=== PATIENT | female | born 1980 | race Caucasian/White ===

== ENCOUNTER 2022-11-15 11:16 | Outpatient (CLI) | payer BC, SELFPAY ==
[2022-11-15 19:49] LABS: TSH With Reflex to FT4* 0.071 uIU/mL (0.270-4.200)
[2022-11-15 20:53] LABS: Free T4 Free Thyroxine* 1.44 ng/dL (0.70-1.85)
== END 2022-11-15 11:17 | disposition home or self-care (01) ==
PROVIDERS: PCP Family Medicine; Visit Provider Family Medicine
DX: E03.9 Hypothyroidism, unspecified (principal)
CPT/HCPCS: 84439; 84443

== ENCOUNTER 2023-04-05 15:52 | Outpatient (CLI) | payer BC, SELFPAY | END 2023-04-05 15:53 | disposition home or self-care (01) | LOC: FRMREF 15:52 | PROVIDERS: PCP Family Medicine; Visit Provider Dermatology | DX: L70.9 Acne, unspecified (principal); I10 Essential (primary) hypertension; E03.9 Hypothyroidism, unspecified | CPT/HCPCS: 80076 ==

== ENCOUNTER 2023-07-15 12:01 | Emergency (ER) | payer BC, SELFPAY ==
[2023-07-15] VITALS (10 sets, daily range): BP systolic 145–158; BP diastolic 89–112; PULSE 57–69; RESP 18; TEMP 36.7; O2SAT 96–98; BMI 27.5
--- NOTE | 2023-07-15 12:16 | ED_ITS ---
HPI - General Adult General Chief complaint: Post Op Complication Stated complaint: Blood not clotting post-op Time Seen by Provider: 07/15/23 12:06 History of Present Illness HPI narrative: Pt states she had varicose vein removal surgery yesterday at [facility], where pt said 13 incisions were made in left leg. Pt states she is unable to stop bleeding from upper incisions unless she has a ton of pressure on them. Pt has hernando wrap on leg and states she went through all of the gauze in my house. Bleeding currently controlled. 42-year-old woman presenting to the emergency department with concern of postoperative bleeding. Yesterday did have treatment on the left leg for varicose veins. Some of these incisions, none were apparently sutured, have begun to bleed. Has been applying compression dressings but bleeding through them. Is not feeling lightheaded. No fever. No purulent drainage. Related Data Previous Rx's Medication Instructions Recorded levothyroxine 125 mcg tablet 125 mcg PO QDAY #90 tabs 12/12/22 clindamycin phosphate 1 % lotion 1 applic topical BID #60 mL 01/06/23 citalopram 40 mg tablet 40 mg PO DAILY #90 tabs 01/11/23 bupropion HCl 300 mg 24 hr tablet, 300 mg PO QAM #30 tabs 03/30/23 extended release bicalutamide 50 mg tablet (Casodex) 50 mg PO 2XW #24 tabs 04/05/23 clindamycin phosphate 1 % lotion 1 applic topical QDAY #60 mL 04/05/23 tretinoin 0.025 % topical cream 1 applic topical QHS #45 grams 04/05/23 propranolol 10 mg tablet 10 mg PO BID #180 tabs 04/18/23 Allergies Allergy/AdvReac Type Severity Reaction Status Date / Time bee venom protein (honey bee) Allergy Mild Hives Verified 07/15/23 12:12 Sulfa (Sulfonamide Allergy Unknown Verified 07/15/23 12:12 Antibiotics) Review of Systems Status of ROS: Reports: 6 or more systems reviewed and unremarkable except as noted in History and below [facility] Medical History Hair loss ?L65.9 - Nonscarring hair loss, unspecified (ICD-10) Surgical History Status post gastric bypass for obesity ?Z98.84 - Bariatric surgery status (ICD-10) Status post hysterectomy ?Z90.710 - Acquired absence of both cervix and uterus (ICD-10) Status post ?Z98.891 - History of uterine scar from previous surgery (ICD-10) Social History Smoking Status: Never smoker Do you use any of these nicotine containing products: None Second hand tobacco smoke exposure: No How often do you have a drink containing alcohol: 2-3 times a week AUDIT-C Alcohol total score: 3 Non-prescribed substance use: denies use Exam Narrative: Exam Narrative: Pleasant. NAD. Seems little anxious though. Breathing easily. Easily conversant. Left leg in question has extensive Hernando wrap over gauze wrap from mid thigh to mid calf. Bleeding is evident in 2 locations in the mid posterior lateral thigh and looks like another spot just behind the knee. After removal of dressing I do not see any inflammatory changes. Soaking the dressing with water to facilitate more easy removal in this upper left thigh lesion/incision does begin to ooze blood again. Numerous incisions scattered over leg each just a little bit over an 8th of an inch in length. I discussed treatment options. Ms. Hitchcock would prefer not to have any suturing done with concerns of further scarring from that. I did propose lidocaine with epinephrine. There is some concern expressed about this but discussed mechanism of action. Did inject approximately 1 mL of this and bleeding improved. Still some subtle oozing with manipulation so applied silver nitrate stick. Bleeding controlled. Placed surgery foam small amount of antibiotic ointment and Band- Aid under light pressure. Surgical Gelfoam also placed on this lesion behind the knee with antibiotic ointment and light pressure Band-Aid. All wrapped with gauze, foam tape and Coban. Given bacitracin from some applies. Also remaining Gelfoam. Const: Vital Signs, click to edit/add: Vital Signs - 24 hr 07/15/23 12:05 Temperature 98.1 F Pulse Rate [Pulse Oximeter] 69 Respiratory Rate 18 Blood Pressure [Ri ght Upper Arm] 145/95 H Pulse Oximetry 98 Oxygen Delivery Me thod Room Air Documenting provider has reviewed patient's vital signs: yes Course Vital Signs Vital signs: Initial Vital Signs Temperature 98.1 F 07/15/23 12:05 Temperature Source Temporal Artery Scan 07/15/23 12:05 Pulse Rate 69 07/15/23 12:05 Respiratory Rate 18 07/15/23 12:05 Blood Pressure 145/95 H 07/15/23 12:05 Blood Pressure Mean 111 H 07/15/23 12:05 Blood Pressure Position Sitting 07/15/23 12:05 Pulse Oximetry 98 07/15/23 12:05 Oxygen Delivery Method Room Air 07/15/23 12:05 Vital Signs Temperature 98.1 F 07/15/23 12:05 Pulse Rate 69 07/15/23 12:05 Respiratory Rate 18 07/15/23 12:05 Blood Pressure 145/95 H 07/15/23 12:05 Pulse Oximetry 98 07/15/23 12:05 Oxygen Delivery Method Room Air 07/15/23 12:05 Temperature 98.1 F 07/15/23 12:05 Pulse Rate 57 L 07/15/23 13:32 Respiratory Rate 18 07/15/23 12:05 Blood Pressure 157/112 H 07/15/23 13:32 Pulse Oximetry 97 07/15/23 13:32 Oxygen Delivery Method Room Air 07/15/23 12:26 Medical Decision Making MDM Narrative Medical decision making narrative: See above. Does not have any history of diagnosed coagulopathy. See patient discharge plan Discharge Plan Discharge Clinical Impression: Post-op bleeding Patient Disposition: Home w/ Parent or Adult Condition: Improved Additional Instructions: If tolerable I would just leave this dressing on until tomorrow. Can remove all but Band-Aids if getting uncomfortable. Definitely leave the Band-Aids on maybe even till Tuesday of this coming week. I would avoid getting this area wet as well until that time. Cut out the end of a plastic bag and rubber bands? Yes. Do get your leg up at rest and mostly try to rest the remainder of the day. If you go to the soccer game, hopefully can still get your leg up. If bleeding through current dressing. Reapply the surgical foam and Band-Aid and gauze and wrap with compression. Prescriptions: No Action clindamycin phosphate 1 % lotion 1 applic topical BID Qty: 60 1RF bicalutamide [Casodex] 50 mg tablet 50 mg PO 2XW Qty: 24 2RF Rx Instructions: Take 1 tablet two days every week tretinoin 0.025 % cream 1 applic topical QHS Qty: 45 1RF clindamycin phosphate 1 % lotion 1 applic topical QDAY Qty: 60 1RF Rx Instructions: Apply every morning. levothyroxine 125 mcg tablet 125 mcg PO QDAY Qty: 90 3RF citalopram 40 mg tablet 40 mg PO DAILY Qty: 90 3RF bupropion HCl 300 mg tablet extended release 24 hr 300 mg PO QAM Qty: 30 5RF propranolol 10 mg tablet 10 mg PO BID Qty: 180 3RF Follow Up/Referrals: Alden Rabago MD [Primary Care Provider] - Stand Alone Forms: [place] Info Instructions
== END 2023-07-15 14:10 | disposition home or self-care (01) ==
PROVIDERS: Emergency Provider Family Medicine; PCP Family Medicine
DX: L76.22 Postprocedural hemorrhage of skin and subcutaneous tissue following other procedure (principal)
CPT/HCPCS: 17250; 99283; 99284

== ENCOUNTER 2023-08-08 13:01 | Outpatient (CLI) | payer BC, SELFPAY | END 2023-08-08 13:02 | disposition home or self-care (01) | PROVIDERS: PCP Family Medicine; Visit Provider Family Medicine | DX: I10 Essential (primary) hypertension (principal); E03.9 Hypothyroidism, unspecified; R53.83 Other fatigue; Z13.21 Encounter for screening for nutritional disorder | CPT/HCPCS: 80053; 82306; 82607; 84439; 84443 ==

== ENCOUNTER 2023-12-09 10:47 | Outpatient (CLI) | payer BC, SELFPAY | END 2023-12-09 10:48 | disposition home or self-care (01) | PROVIDERS: PCP Family Medicine; Visit Provider Family Medicine | DX: E03.9 Hypothyroidism, unspecified (principal); I10 Essential (primary) hypertension; Z13.220 Encounter for screening for lipoid disorders | CPT/HCPCS: 80053; 80061; 84439; 84443; 87086 ==

== ENCOUNTER 2024-03-22 15:22 | Outpatient (CLI) | payer BC, SELFPAY ==
--- NOTE | 2024-03-22 15:40 | CRLHL7_ITS ---
For Patients: As a result of the Century Cures Act, medical imaging exams and procedure reports are released immediately into your electronic medical record. You may view this report before your referring provider. If you have questions, please contact your health care provider. BILATERAL SCREENING MAMMOGRAM WITH COMPUTER-AIDED DETECTION AND TOMOSYNTHESIS TECHNIQUE: CC and MLO views were obtained. These mammographic images have been obtained using full-field digital technique. These mammographic images were interpreted with the benefit of computer-aided detection. Breast Tomosynthesis was used in this interpretation. COMPARISON FILM: 03/01/23, 12/02/21, 10/17/20. FINDINGS: There are scattered areas of fibroglandular density. IMPRESSION: There is no radiographic evidence for malignancy. ASSESSMENT: BI-RADS Category 1: Negative RECOMMENDATION: Routine screening mammogram in 1 year. A lay language report of this examination will be provided to the patient. Cuco Vicente M.D. Diagnostic Radiologist [email or web address] SP/Dictated by: Cuco Vicente MD @ 03/26/2024 12:26:00 PM (Electronically Signed)
== END 2024-03-22 15:23 | disposition home or self-care (01) ==
LOC: MAMMO 15:22
PROVIDERS: PCP Family Medicine; Visit Provider Family Medicine
DX: Z12.31 Encounter for screening mammogram for malignant neoplasm of breast (principal)
CPT/HCPCS: 77063; 77067

== ENCOUNTER 2024-10-09 11:03 | Outpatient (CLI) | payer BC, SELFPAY | END 2024-10-09 11:04 | disposition home or self-care (01) | PROVIDERS: PCP Family Medicine; Visit Provider Family Medicine | DX: R10.11 Right upper quadrant pain (principal); E03.9 Hypothyroidism, unspecified | CPT/HCPCS: 80076; 84443 ==

== ENCOUNTER 2025-03-29 10:57 | Outpatient (CLI) | payer BC, SELFPAY ==
--- OUTSIDE RECORDS SUMMARY | 2025-01-23 16:30 | XMS_ITS | Encounter Summary ---
Author Organization [employer] Address [address], [place] [address] Care Team Providers Care Salsa Dance Instructor Name Role Phone Jesus Raabgo MD Primary Care Provider [phone] Reason for Referral * Medication Prior Authorization - Authorized Specialty Diagnoses / Procedures Referred By Contac t Referred To Contact Diagnoses Hx of obesity Body mass index (BMI) of 23.0-23.9 in adult Weight loss of more than 10% body weight Anne Kumar MD [address] [place] [id number] Phone: tel: fax: Referral ID Status Reason Start Date Expiration Date V isits Requested Visits Authorized [id number] Authorized 11/19/2024 02/17/2026 1 1 Reason for Visit * Reason Comments Video Visit Bypass Surg Followup Encounter Details Date Type Department Care Team (Late st Contact Info) Description 01/23/2025 4:30 PM CDT Telemedicine [facility] [address], [address] [place] [address] Anne Kumar MD [address] [place], [place] [id number] Recent weight gain after surgical therapy for obesity (Primary Dx); Hx of obesity; Benign essential hypertension, with delivery, with current complication; Body mass index (BMI) of 23.0-23.9 in adult; Intestinal malabsorption following gastrectomy; Hypertriglyceridemia (HRC); Status post bariatric surgery; Weight loss of more than 10% body weight Social History Tobacco Use Types Packs/Day Years Used Date Smoking Tobacco: Never Smokeless Tobacco: Never Alcohol Use Standard Drinks/Week Comments Yes 0 (1 standard drink = 0.6 oz pur e alcohol) very rarely PHQ-2 Answer Date Recorded PHQ-2 Score 2 02/02/2023 Comments Unknown Sex and Gender Information Value Date Recorded Sex Assigned at Female 06/18/2021 9:13 AM CDT Legal Sex Female 5:07 AM CDT Gender Identity Female 06/18/2021 9:13 AM CDT Sexual Orientation Not on file 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 Not on file Not on file Not on file documented as of this encounter Last Filed Vital Signs Vital Sign Reading Time Taken Comments Blood Pressure - - Pulse - - Temperature - - Respiratory Rate - - Oxygen Saturation - - Inhaled Oxygen Concentration - - Weight 63.5 kg (140 lb) 01/23/2025 10:58 AM CDT Height 165.1 cm (5' 5) 01/23/2025 10:58 AM CDT Body Mass Index 23.3 01/23/2025 10:58 AM CDT documented in this encounter Patient Instructions * Patient Instructions* Anne Kumar MD - 01/23/2025 4:30 PM CDT Lab Instructions (to be put in AVS) Please follow the following instructions prior to having your labs drawn: No vitamins or supplements for 24 hours prior to the test No alcohol for 24 hours prior to the test No food or drink (other than water or plain, black coffee) for 12 hours prior to the test. You may call [phone] to schedule a lab appointment at the [facility] nearest you. Scheduled appointments are preferred; however, walk-ins are also accepted. The [place] location isopen Saturdays. Lab Instructions (to be put in AVS) Please follow the following instructions prior to having your labs drawn: No vitamins or supplements for 24 hours prior to the test No alcohol for 24 hours prior to the test No food or drink (other than water or plain, black coffee) for 12 hours prior to the test. You may call [phone] to schedule a lab appointment at the [facility] lab nearest you. Scheduled appointments are preferred; however, walk-ins are also accepted. The [place] location isopen Saturdays. documented in this encounter Progress Notes * Anne Kumar MD - 01/23/2025 4:30 PM CDTAddended by: ANNE VASQUEZ on: 02/14/2025 10:45 PM Modules accepted: Orders * Anne Kumar MD - 01/23/2025 4:30 PM CDT Bariatric Surgery Post-Operative Follow Up HPI This 44 y.o. year-old female with chronic medical problems including HTN Presents for routine postoperative followup status post Laparoscopic Deonna-en-Y. Date of surgery 01/08/2022. Weight viviana: 160 lbs post RNY BOT started 08/2023. Phentermine, Topiramate. Zepbound at 178 lbs Anti Obesity Medication trials Zepbound 02/2024 BMI 29 - current Phentermine 08/2023. Stopped in October 2023 due to increase of BP and no help with weight. control: hysterectomy INTERIM HISTORY Current weight 01/23/2025 63.5 kg (140 lb) 07/18/2024 :137 lb 01/2024: 178 lbs BMI 29 01/2023: 162 lbs Currently on zepbound 5 mg. No side effects. Able to maintain desired weight at this dose. Post Bariatric Surgery Life Style Physical activity: walking.no resistance training. Nutrition: protein 3 times a day. Vitamin and supplements use: yes Alcohol use:rare Smoking: None. Avoiding drinking 30 min before and after eating: yes Mood: denies Symptoms of depression. Dysregulated eating: no Sleep: 7 h Water intake: 64 oz Post Bariatric Surgery Symptoms Heart burn / GERD symptoms: never Dysphagia: Not present. Abdominal pain: Not present. Dumping / Hypoglycemia: no Bariatric Weight History and Calculations Weight History Age at Onset of Obesity: 89 Highest Adult Weight: 245 lb Preferred Weight: 165 lb Lowest Adult Weight: 165 lb At what weight would you not be disappointed?: 199 lb Starting Weight: 238 lb Current Weight: 140 lb Height (in): 66 Weight Calculations Excess Weight: 99 lb Current Weight Loss: 98 lb Goal Weight: 139 lb Starting BMI: 38.49 Percent Exess Weight Loss: 99 Current BMI: 22.64 Percent Totoal Body Weight Loss: 41 MEDICAL HISTORY Phycological history Dysregulated eating : No Substance over use: No Medical history: The patient has a past medical history of S/P gastric bypass (01/08/2022). Surgical history: The patient has a past surgical history that includes Laparoscopic Deonna-en-Y gastric bypass (01/08/2022). Social history: The patient reports that she has never smoked. She has never used smokeless tobacco. She reports current alcohol use. She reports that she does not use drugs. Family history: The patient's family history includes Obesity in her father, mother, maternal grandfather, and maternal grandmother. There is no history of Drug Abuse or Alcohol Abuse. Allergies: Oxycodone and Sulfa antibiotics CURRENT MEDICATIONS The patient has a current medication list which includes the following prescription(s): azelaic acid, bicalutamide, calcium citrate, celecoxib, citalopram, labetalol, levothyroxine, lisinopril, multivitamin with minerals, propranolol, retin-a, and zepbound, and the following Facility-Administered Me dications: sodium chloride 0.9%. OBJECTIVE: Ht 1.651 m (5' 5) Wt 63.5 kg (140 lb) BMI 23.30 kg/m?? (Vitals are reported from patient due to nature of telehealth visit). Gen.: Alert, cooperative in no in acute respiratory or emotional distress. Respiratory: Normal respiratory effort. Psych: No evidence of overt anxiety or depression. Lab Results Component Value Date HGB 13.0 12/15/2022 FERR 76 12/15/2022 FE 120 12/15/2022 ALT 18 06/26/2021 HGBA1C 5.8 (H) 06/26/2021 LDL 126 06/26/2021 TRI 280 (H) 06/26/2021 HDL 49 06/26/2021 CREATININE 0.90 06/26/2021 ASSESSMENT Jaye is a 44 y.o. female is a post Gastric bypass, laparoscopic . Presents for follow up on bariatric surgery 1. Benign essential hypertension, with delivery, with current complication 2. Body mass index (BMI) of 23.0-23.9 in adult 3. Intestinal malabsorption following gastrectomy 4. Hypertriglyceridemia (HRC) 5. Status post bariatric surgery Recurrent weight gain (RWG) PLAN BACK ON TRACK PLAN started 01/2024 BMI 29 BH: No signs of Dysregulated eating. Nutrition: following high protein / low calorie diet. Exercise: Resistance training in place as well as cardion Labs: Reviewed. Other: Anti Obesity Medication(s): Continue with zepbound 5 mg . Prior authorization initiated. - Request sent for Continuation (Start date: 01/2024) of therapy (baseline BMI before any anti obesity medication: 29 kg/m2 p - Patient does not have a contraindication to the medication, including personal or family history of medullary thyroid carcinoma or MEN type 2, and/or co- administration of GLP-1 receptor agonist. - Patient is not pregnan - Patient has a regimen of increased physical activity of at least 150 minutes - Patient has ongoing care of a wafer fabricator hand presser in the last 3 months OR initiation of and ongoing use of a reduced calorie diet. - Patient has a baseline BMI greater than or equal to 30 kg/m2 greater than or equal to 27 kg/m2 with at least one weight-related comorbid condition (type 2 diabetes, established coronary heart disease, other atherosclerotic disease, sleep apnea, hypertension, dyslipidemia) Follow up in 3 months. Schedule Link sent to patient Anne Kumar MD This service was provided via telehealth and conducted using a synchronous audiovideo link. Location of clinician: home Location of patient: home documented in this encounter Nursing Notes * Joseph Russ MA - 01/23/2025 4:30 PM CDT Patient has completed mobile check in process. Last seen on 07/18/24 with recorded weight of 137 lbs. Weight History: Bariatric Weight History and Calculations Weight History Age at Onset of Obesity: 89 Highest Adult Weight: 245 lb Preferred Weight: 165 lb Lowest Adult Weight: 165 lb At what weight would you not be disappointed?: 199 lb Starting Weight: 238 lb Current Weight: 140 lb Height (in): 66 Weight Calculations Excess Weight: 99 lb Current Weight Loss: 98 lb Goal Weight: 139 lb Starting BMI: 38.49 Percent Exess Weight Loss: 99 Current BMI: 22.64 Percent Totoal Body Weight Loss: 41 Measurements Do you have a scale? YES - 140 lb. Do you have a BP cuff? NO Eating patterns Patient is experiencing the following symptoms/problems: None Medications: reviewed by patient. Compliance: Yes Side effects: NO Patient would like to discuss: No concerns Joseph Russ MA 10:59 AM 01/23/2025 documented in this encounter Plan of Treatment Upcoming Encounters Date Type Department Care Team (Late st Contact Info) Description 01/09/2026 3:30 PM CDT Telemedicine [facility] [address] [place] [address], [facility] [address] [place] [id number] Anne Kumar MD [address] [place] [phone] 03/26/2026 4:30 PM CDT Telemedicine [facility] Weight [address] [place] [id number] Anne Kumar MD [address] [place] [id number] Scheduled Orders Name Type Priority Associated Diagnoses Orde r Schedule Lipid Panel & Direct LDL (if Needed) Lab Routine Status post bariatric surgery Expected: 01/23/2025, Expires: 07/25/2025 Hgb A1C Lab Routine Status post bariatric surgery Intestinal malabsorption following gastrectomy Expected: 01/23/2025, Expires: 07/25/2025 Hemoglobin, Blood Lab Routine Status post bariatric surgery Intestinal malabsorption following gastrectomy Expected: 01/23/2025, Expires: 04/23/2025 Iron (no IBC or Sat) Lab Routine Status post bariatric surgery Intestinal malabsorption following gastrectomy Expected: 01/23/2025, Expires: 04/23/2025 Prealbumin Lab Routine Status post bariatric surgery Intestinal malabsorption following gastrectomy Expected: 01/23/2025, Expires: 07/25/2025 Intact PTH Lab Routine Status post bariatric surgery Intestinal malabsorption following gastrectomy Expected: 01/23/2025, Expires: 07/25/2025 Vitamin B12 Only Lab Routine Status post bariatric surgery Intestinal malabsorption following gastrectomy Expected: 01/23/2025, Expires: 07/25/2025 Vitamin D 25-Hydroxy, Total Lab Routine Status post bariatric surgery Intestinal malabsorption following gastrectomy Expected: 01/23/2025, Expires: 07/25/2025 Ferritin Lab Routine Status post bariatric surgery Intestinal malabsorption following gastrectomy Expected: 01/23/2025, Expires: 07/25/2025 Hgb A1C Lab Routine Status post bariatric surgery Expected: 01/23/2025, Expires: 07/25/2025 ALT (SGPT) Lab Routine Status post bariatric surgery Expected: 01/23/2025, Expires: 07/25/2025 documented as of this encounter Visit Diagnoses Diagnosis Recent weight gain after surgical therapy for obesity- Primary Hx of obesity Personal history of other specified diseases Benign essential hypertension, with delivery, with current complication Body mass index (BMI) of 23.0-23.9 in adult Body Mass Index between 19-24, adult Intestinal malabsorption following gastrectomy Hypertriglyceridemia (HRC) Pure hyperglyceridemia Status post bariatric surgery Bariatric surgery status Weight loss of more than 10% body weight documented in this encounter Care Teams Salsa Dance Instructor Relationship Specialty Start Date End Date Jesus Rabago MD [facility] [address] [place] [address] PCP - General Family Practice 01/08/22 documented as of this encounter
--- NOTE | 2025-03-29 11:30 | CRLHL7_ITS ---
For Patients: As a result of the Century Cures Act, medical imaging exams and procedure reports are released immediately into your electronic medical record. You may view this report before your referring provider. If you have questions, please contact your health care provider. INDICATION: BILATERAL SCREENING MAMMOGRAM, ASYMPTOMATIC 44 Y/O FEMALE COMPARISON: 03/22/2024, 03/01/2023, 12/02/2021 TECHNIQUE: Digital mammogram in CC and MLO projections including computer-aided detection (CAD) and tomosynthesis. BREAST COMPOSITION: The breasts are heterogeneously dense, which may obscure small masses. FINDINGS: No suspicious findings. ASSESSMENT: BI-RADS 1 Negative RECOMMENDATION: Annual screening mammogram. A lay language report of this examination will be provided to the patient. Dictated by: Cuco Vicente MD @ 03/29/2025 11:54:43 (Electronically Signed)
--- OUTSIDE RECORDS SUMMARY | 2025-03-30 00:31 | XMS_ITS | Clinical Summary ---
Author Organization [facility] Address [address] [place] [address] Care Team Providers Care Quality Process Engineer Name Role Phone Jesus Rabago MD Primary Care Provider [phone] Source Comments You are receiving this document as you are listed as the primary care provider,follow-up provider, or the patient has been referred to you for consultation.This is in compliance with the Medicare andMedicaid EHR Incentive Program,which states Providers who transition their patient to another setting of careor provider of care or refers their patient to another provider of care shouldprovide summary care record for each transition of care or referral. [facility] Allergies Active Allergy Reactions Criticality Noted Date Comments Oxycodone Headache High 01/15/2022 migraine Sulfa Antibiotics 10/06/2004 PN: LW Reaction: family hx Medications levothyroxine (SYNTHROID) 125 MCG tablet Take 1 Tablet (125 mcg) by mouth daily. 1 Active propranolol (INDERAL) 10 MG tablet Take 1 Tablet (10 mg) by mouth as needed. 1 Active citalopram (CELEXA) 40 MG tablet Take 1 Tablet (40 mg) by mouth daily. Active multivitamin with minerals tablet Take 1 Tablet by mouth daily. Active Calcium Citrate (AKA CALCITRATE) 950 (200 Ca) MG tablet Take 1 Tablet (950 mg) by mouth daily. Active azelaic acid (FINACEA) 15 % gel Apply topically. 4 Active bicalutamide (CASODEX) 50 MG tablet Take by mouth. 4 Active celecoxib (CELEBREX) 200 MG capsule Take 1 Capsule (200 mg) by mouth daily. 4 Active labetalol (TRANDATE) 300 MG tablet Take 1 Tablet (300 mg) by mouth two times a day. 4 Active lisinopril (ZESTRIL) 40 MG tablet Take 1 Tablet (40 mg) by mouth daily. 4 Active RETIN-A 0.025 % cream Apply topically. 4 Active tirzepatide-we ight management (ZEPBOUND) 5 MG/0.5ML pen injectionIndic ations:Hx of obesity,Body mass index (BMI) of 23.0-23.9 in adult,Weight loss of more than 10% body weight Inject 0.5 mL (5 mg) subcutaneously once every week. 2 mL 11 5 Active Active Problems Problem Noted Date Diagnosed Date S/P gastric bypass 01/08/2022 Overview (01/08/2022): Laparoscopic Deonna-en-Y gastric bypass No elective surgery for 30 days starting 01/08/22 Class 2 obesity with body ma ss index (BMI) of 39.0 to 39.9 in adult 11/17/2021 Overview (11/17/2021): Added automatically from request for surgery [id number] Essential (primary) hypertension 06/18/2021 Current mild episode of major depressive disorde r 06/18/2021 Depressive disorder 12/19/2007 Overview (06/01/2017): Depression NOS Benign essential hypertensio n, with delivery, with current complication 08/22/2007 Overview (06/01/2017): Hypertension Benign Essent Deliv Pp Comp Encounters Date Type Department Care Team Description 02/14/2025 Telephone [facility] [address] [place], [place] [phone] Renate Chang php mysql developer For Medication (Zepbound approved); Insurance Concerns (No insurance benefits found per PA response) 01/23/2025 4:30 PM CDT Telemedicine [facility] [address] [facility], [address] [place] [address] Aishwarya Kumar MD Recent weight gain after surgical therapy for obesity (Primary Dx); Hx of obesity; Benign essential hypertension, with delivery, with current complication; Body mass index (BMI) of 23.0-23.9 in adult; Intestinal malabsorption following gastrectomy; Hypertriglyceridemia (HRC); Status post bariatric surgery; Weight loss of more than 10% body weight from Last 3 Months Immunizations Immunization Administration Dates Next Due Flu Vac Preserv Free (3+yrs) 07/10/2009 H1n1 Miv Sanofi 3+ Yr (Injected) 08/11/2009 TDAP (ADACEL) 12/19/2007 Family History Medical History Relation Name Comments Obesity Father Obesity Mother Obesity Maternal Grandfather Obesity Maternal Grandmother Alcohol Abuse Negative Family History Drug Abuse Negative Family History Relation Name Status Comments Father Mother Maternal Grandfather Maternal Grandmother Social History Tobacco Use Types Packs/Day Years [...] file Not on file Not on file Last Filed Vital Signs Vital Sign Reading Time Taken Comments Blood Pressure 146/83 01/11/2024 8:15 AM CDT fatuma f-reported Pulse 66 07/14/2023 3:21 PM CDT Temperature 36.7 C (98 F) 01/09/2022 10:12 AM CDT Respiratory Rate 18 01/09/2022 10:12 AM CDT Oxygen Saturation 96% 01/09/2022 10:12 AM CDT Inhaled Oxygen Concentration - - Weight 63.5 kg (140 lb) 01/23/2025 10:58 AM CDT Height 165.1 cm (5' 5) 01/23/2025 10:58 AM CDT Body Mass Index 23.3 01/23/2025 10:58 AM CDT Plan of Treatment Upcoming Encounters Date Type Department Care Team (Late st Contact Info) Description 01/09/2026 3:30 PM CDT Telemedicine [facility] [address] [place] [id number] Aishwarya Kumar MD [address] [place] [address] [phone] 03/26/2026 4:30 PM CDT Telemedicine [facility] [address], [address] [id number] Aishwarya Kumar MD [address] [place] [address] [phone] Health Maintenance Due Date Last Done Comments Colon Cancer Screening Plan Due 1979 Hep C Screening (Preventive Services) 1979 Mammogram 1979 Adult Preventive Visit 1997 HepB Vaccine (1) 1998 Cervical Cancer Screening Due 12/24/2008 12/23/2008, 12/19/2007 COVID-19 Vaccine ( season) 2024 09/22/2021, 12/18/2020, 11/20/2020 DTaP/Tdap/Td Vaccine (3 - Tdap) 07/16/2025 07/16/2015, 12/19/2007 Cholesterol 06/26/2026 06/26/2021 Zoster/Shingles Vaccine (1 of 2) 2029 HIV Screening (Preventive Services) Completed 09/10/2009 Influenza Vaccine Completed 10/09/2024, , 08/24/2021, Additional history exists HPV Vaccine Aged Out No longer eligi ble based on patient's age to complete this topic HepA Vaccine Aged Out No longer eligi ble based on patient's age to complete this topic Hib Vaccine Aged Out No longer eligi ble based on patient's age to complete this topic IPV (Polio) Vaccine Aged Out No longe r eligible based on patient's age to complete this topic MCV4 Vaccine Aged Out No longer eligi ble based on patient's age to complete this topic Meningococcal B Vaccine Aged Out No l onger eligible based on patient's age to complete this topic Pneumococcal Vaccine Aged Out No long er eligible based on patient's age to complete this topic Procedures Procedure Name Priority Date/Time Associated Diagnosis Comments LIPID PANEL & DIRECT LDL (IF NEEDED) Routine 06/26/2021 8:40 AM CDT Screening for lipoid disorders HIV ANTIBODY Routine 09/10/2009 11:40 AM [employer] ANATOMICAL PATH LIQUID BASED Routine 12/23/2008 7:49 AM CDT from Last 3 Months or Most Recently Relevant to Health Maintenance Results * (ABNORMAL) Lipid Panel and Direct LDL(If Needed) (06/26/2021 8:40 AM CDT) [facility] Cholesterol 231(H) 0 - 199 mg/dL 06/26/2021 12:33 PM T [facility] Triglyceride 280(H) <=149 mg/dL 06/26/2021 12:33 PM T [facility] HDL Cholesterol 49 >=40 mg/dL 12:33 PM [facility] LDL, Calculated 126 <130 mg/dL 12:33 PM T [facility] Non HDL Chol, Calculated 182(H) <=159 mg/dL 06/26/2021 12:33 PM T [facility] Cholesterol/HDL Ratio 4.7 06/26/2021 12:33 PM T [facility] Hours Fasting 14 06/26/2021 12:33 PM CDT [facility] Blood Venipuncture / Unknown 06/26/2021 8:40 AM CDT 06/26/2021 8:40 AM CDT us Aishwarya Kumar MD LAB_1 Elen lopez Result [facility] [address] [place] [address], [facility] [phone] [facility] [address] [place] [address], [facility] [phone] * HIV ANTIBODY (09/10/2009 11:40 AM [employer]) HIV 1/HIV 2 Non Reac Non Reac HP CONVERSION 09/10/2009 11:4 0 AM [employer] us Cuco Ortega MD LAB_1 Final Result Performing Organization Address [facility] Co de Phone Number HP CONVERSION * Pap Smear (12/23/2008 7:49 AM CDT) PAP Smear Liquid Based SEE TEXT No normal range HP CONVERSION Comment: Patient: JAYE ESCOBAR CERVICAL CYTOLOGY REPORT Pathology # [id number] Date Obtained: Date Received: CYTOLOGIC IMPRESSION: Negative for intraepithelial lesion or malignancy. Verified 12/26/08 by: JLL (electronic signature) ADDITIONAL DATA LMP: CLINICAL HIST LIQUID BASED PAP CERVICAL SPECIMEN ADEQUACY: Satisfactory. ENDOCERVICAL CELLS: Present. 12/23/2008 7:49 AM CDT us Sameera Morrison LAB_1 Final Result HP CONVERSION from Last 3 Months or Most Recently Relevant to Health Maintenance Insurance [place] [address] [facility] [place] [id number] [facility] [employer] [place] [id number] Advance Directives * Full Code (Latest Code Status on File) Date Activated Date Inactivated Comments 01/08/2022 5:53 PM 01/09/2022 3:28 PM Care Teams Quality Process Engineer Relationship Specialty Start Date End Date Jesus Rabago MD [facility] [address] [place] [address] PCP - General Family Practice 01/08/22
--- OUTSIDE RECORDS SUMMARY | 2025-03-30 00:31 | XMS_ITS | Encounter Summary ---
Author Organization [facility] Address [address] [address] Care Team Providers Care Waist Presser Name Role Phone Jesus Rabago MD Primary Care Provider [phone] Reason for Visit * Reason Comments Prior Authorization For Medication Zepbo und approved Insurance Concerns No insurance benefit s found per PA response Encounter Details Date Type Department Care Team (Late st Contact Info) Description 02/14/2025 Telephone [facility] [address] [facility] [place], [place] [phone] Renate Chang dockmaster For Medication (Zepbound approved); Insurance Concerns (No insurance benefits found per PA response) Social History Tobacco Use Types Packs/Day Years [...] on file documented as of this encounter Nursing Notes * Renate Chang RN - 02/19/2025 11:24 AM CDT PA has been approved. Pt informed. * Renate Chang RN - 02/18/2025 2:00 PM CDT Contacted insurance to verify PA remains in process or requires to be restarted. Call transferred to speciality department who manages this account. Spoke with [employer] employee relations representative. Calltransferred to clinical review through [employer]. Informed a faxed form to be forwarded for completion and return. * Renate Chang RN - 02/14/2025 3:46 PM CDT PA closed as no pharmacy benefits have been found. Contacted pharmacy and obtained the following: Rx BIN: [id number] Rx PCN: [id number] Rx Group: [id number] Pt ID: [id number] PA re initiated documented in this encounter Plan of Treatment Upcoming Encounters Date Type Department Care Team (Late st Contact Info) Description 01/09/2026 3:30 PM CDT Telemedicine [facility] [address] [place] [phone] Aishwarya Kumar MD [address] [place] [phone] 03/26/2026 4:30 PM CDT Telemedicine [facility] [address], [facility] [address] [place] [phone] Aishwarya Kumar MD [address] [place] [phone] documented as of this encounter Visit Diagnoses Not on filedocumented in this encounter Care Teams Waist Presser Relationship Specialty Start Date End Date Jesus Rabago MD [facility] [address] [place] [address] PCP - General Family Practice 01/08/22 documented as of this encounter
--- OUTSIDE RECORDS SUMMARY | 2025-03-30 00:32 | XMS_ITS | Clinical Summary ---
Author Organization [facility] Address [address] [place] [address] Care Team Providers Care Copywriting Intern Name Role Phone Unavailable Primary Care Provider Unavailabl e Source Comments Patient records contain information from all sites at [facility]. For routine questions regarding patient records, call [phone] during business hours, M-F 8:00 AM - 5:00 PM Central Time. Record requests for emergency care only can be directed to [phone] at any time.[facility] Active Problems Problem Noted Date Diagnosed Date Loss Hearing Sensorineural Bilateral 06/23/2023 Social History Tobacco Use Types Packs/Day Years Used Date Smoking Tobacco: Never Assessed Humiliation, Afraid, Rape, and Kick questionnair e Answer Date Recorded Within the last year, have y ou been afraid of your partner or ex-partner? No 05/13/2023 Within the last year, have y ou been humiliated or emotionally abused in other ways by your partner or ex-partner? No Within the last year, have y ou been kicked, hit, slapped, or otherwise physically hurt by your partner or ex-partner? No 05/13/2023 Within the last year, have y ou been raped or forced to have any kind of sexual activity by your partner or ex-partner? No 05/13/2023 Hunger Vital Sign Answer Date Recorded Within the past 12 months, y ou worried that your food would run out before you got the money to buy more. Sometimes true Within the past 12 months, t he food you bought just didn't last and you didn't have money to get more. Never true 01/2023 PRAPARE - Transportation Answer Date Re corded In the past 12 months, has l ack of transportation kept you from medical appointments or from getting medications? No 01/2023 In the past 12 months, has l ack of transportation kept you from meetings, work, or from getting things needed for daily living? No 05/13/2023 Housing Stability Answer Date Recorded What is your living situation today? [facility] 05/13/2023 Comments Unknown Sex and Gender Information Value Date Recorded Sex Assigned at Female 05/13/2023 7:44 PM CDT Legal Sex Female 12:45 PM CDT Gender Identity Female 05/13/2023 7:44 PM CDT Sexual Orientation Straight 05/13/2023 7: 44 PM CDT Plan of Treatment Health Maintenance Due Date Last Done Comments CT Colonography 1979 Cervical/Vaginal Cancer Screening 1979 Cologuard 1979 Colonoscopy 1979 Colorectal Cancer Screening 1979 FIT 1979 Fasting Glucose for Diabetes Screening 1979 HIV Screening 1979 Hepatitis C Screening 1979 Lipid (Cholesterol) Screening 1979 Mammogram 1979 Hepatitis B Vaccines (1 of 3 - 19+ 3-dose series) 1998 COVID-19 Vaccine ( season) 2024 09/22/2021, 12/18/2020, 11/20/2020 Influenza Vaccine (#1) 2024 3, 08/24/2021, 08/07/2020, Additional history exists Depression Screening (Annual PHQ-2) 10/10/2024 DTaP,Tdap,and Td Vaccines (3 - Td or Tdap) 07/16/2025 07/16/2015, 12/19/2007 HPV Vaccines Aged Out No longer eligi ble based on patient's age to complete this topic IPV Vaccines Aged Out No longer eligi ble based on patient's age to complete this topic Pneumococcal vaccine (0-49 years) Aged Out No longer eligible based on patient's age to complete this topic Insurance [facility]
== END 2025-03-29 10:58 | disposition home or self-care (01) ==
LOC: MAMMO 10:57
PROVIDERS: PCP Family Medicine; Visit Provider Family Medicine
DX: Z12.31 Encounter for screening mammogram for malignant neoplasm of breast (principal); R92.333 Mammographic heterogeneous density, bilateral breasts
CPT/HCPCS: 77063; 77067

== ENCOUNTER 2025-05-10 14:24 | Outpatient (CLI) | payer BC, SELFPAY | END 2025-05-10 14:25 | disposition home or self-care (01) | LOC: LKVREF 14:26 | PROVIDERS: PCP Family Medicine; Visit Provider Family Medicine | DX: E03.9 Hypothyroidism, unspecified (principal) | CPT/HCPCS: 84439; 84443 ==

== ENCOUNTER 2025-07-17 10:14 | Outpatient (CLI) | payer BC, SELFPAY | END 2025-07-17 10:15 | disposition home or self-care (01) | LOC: NFLDREF 07-20 17:47 | PROVIDERS: PCP Family Medicine; Referring Provider Family Medicine; Visit Provider Physician Assistant Surgical | DX: N30.01 Acute cystitis with hematuria (principal) | CPT/HCPCS: 87086 ==

== ENCOUNTER 2025-10-03 14:39 | Emergency (ER) | payer BC, SELFPAY ==
--- OUTSIDE RECORDS SUMMARY | 2025-10-03 14:41 | XMS_ITS | Clinical Summary ---
Author Organization Formerly [facility] Address [address] [place] [address] Care Team Providers Care Bryologist Name Role Phone Jesus Rabago MD Primary Care Provider [phone] Source Comments You are receiving this document [...] for each transition of care or referral. [facility]ly [facility] Allergies Active AllergyReactionsCriticalityNoted DateCommentsOxycodoneHeadacheHigh 01/15/2022 migraine Sulfa Rkrwzkpggej06/28/2004 PN: LW Reaction: family hx Medications MedicationSigDispense QuantityRefillsLast FilledStart DateEnd DateStatus levothyroxine (SYNTHROID) 125 MCG tablet Take 1 Tablet (125 mcg) by mouth daily.03/13/2021ctive propranolol (INDERAL) 10 MG tablet Take 1 Tablet (10 mg) by mouth as needed.03/17/2021ctive citalopram (CELEXA) 40 MG tablet Take 1 Tablet (40 mg) by mouth daily.Active multivitamin with minerals tablet Take 1 Tablet by mouth daily.Active Calcium Citrate (AKA CALCITRATE) 950 (200 Ca) MG tablet Take 1 Tablet (950 mg) by mouth daily.Active azelaic acid (FINACEA) 15 % gel Apply topically.05/25/2024ctive bicalutamide (CASODEX) 50 MG tablet Take by mouth.05/25/2024ctive celecoxib (CELEBREX) 200 MG capsule Take 1 Capsule (200 mg) by mouth daily.4Active labetalol (TRANDATE) 300 MG tablet Take 1 Tablet (300 mg) by mouth two times a day.06/08/2024ctive lisinopril (ZESTRIL) 40 MG tablet Take 1 Tablet (40 mg) by mouth daily.06/08/2024ctive RETIN-A 0.025 % cream Apply topically.05/25/2024ctive tirzepatide-weight management (ZEPBOUND) 5 MG/0.5ML pen injection Indications:Hx of obesity,Body mass index (BMI) of 23.0-23.9 in adult,Weight loss of more than 10% body weightInject 0.5 mL (5 mg) subcutaneously once every week. 2 mL 1105Active Active Problems ProblemNoted DateDiagnosed DateS/P gastric zmdzbx9001/08/2022 Overview (01/08/2022): Laparoscopic Deonna-en-Y gastric bypass No elective surgery for 30 days starting 01/08/22 Class 2 obesity with body mass index (BMI) of 39.0 to 39.9 in adult11/17/2021 Overview (11/17/2021): Added automatically from request for surgery [id number] Essential (primary) rfopjootvgrs42/09/2021Current mild episode of major depressive qgrtbqmi07/09/2021Depressive /11/2008 Overview (06/01/2017): Depression NOS Benign essential hypertension, with delivery, with current vafimgupjazn49/13/2007 Overview (06/01/2017): Hypertension Benign Essent Deliv Pp Comp Immunizations ImmunizationAdministration DatesNext DueFlu Vac Preserv Free (3+yrs)07/10/2009 H1n1 Miv [employer]i 3+ Yr (Injected)08/11/2009TDAP (ADACEL)12/19/2007 Family History Medical HistoryRelationNameCommentsObesityBirth FatherObesityBirth MotherObesity Maternal GrandfatherObesityMaternal GrandmotherAlcohol AbuseNegative Family HistoryDrug AbuseNegative Family HistoryRelationNameStatusCommentsBirth Father MotherMaternal GrandfatherMaternal Grandmother Social History Tobacco UseTypesPacks/DayYears UsedDateSmoking Tobacco: NeverSmokeless Tobacco: NeverAlcohol UseStandard Drinks/WeekCommentsYes0 (1 standard drink = 0.6 oz pure alcohol)very rarelyPHQ-2AnswerDate RecordedPHQ-2 Btvum8633 CommentsUnknownSex and Gender InformationValueDate RecordedSex Assigned at Cjtypq3406/18/2021 9:13 AM CDTLegal XeuSfqetd92/10/2012 5:07 AM CDTGender Identity Aipgxq8606/18/2021 9:13 AM CDTSexual OrientationNot on fileOccupationIndustryJob Start DateJob End Datedirect salesNot on fileNot on fileNot on file Last Filed Vital Signs Vital SignReadingTime TakenCommentsBlood Maiyhhzt173/8304 8:15 AM CDT self-uwdwicttAheju4045/05/2023 3:21 PM KRCRntfqannxuc55.7 ??C (98 ??F)01/09/2022 10:12 AM CDTRespiratory Fieo8891 10:12 AM CDTOxygen Yjgivuekmz68% 01/09/2022 10:12 AM CDTInhaled Oxygen Concentration--Mibuir57.5 kg (140 lb) 01/23/2025 10:58 AM DBUZrylpu978.1 cm (5' 5)01/23/2025 10:58 AM CDTBody Mass Index23.304 10:58 AM CDT Plan of Treatment DateTypeDepartmentCare Team (Latest Contact Info)Ghklwbgbkxj43/02/2026 3:30 PM CDTTelemedicine [facility] [address], [address] [place] [address] Aishwarya Kumar MD [address] [place] [address] 01/23/2026 3:30 PM [facility] [address], [address] [place] [address] Aishwarya Kumar MD [address] [place] [address] 03/26/2026 4:30 PM [facility] [address] [place] [address], [address] [place] [address] Aishwarya Kumar MD [address] [place], [place] [address] Health MaintenanceDue DateLast DoneCommentsColon Cancer Screening Plan Due 1979Hep C Screening (Preventive Services)1980 3353Qyqmwnomv1979 Adult Preventive Visit1997HepB Vaccine (1)1998Cervical Cancer Screening Due, 12/19/2007COVID-19 Vaccine ( season), 12/18/2020, 11/20/2020Influenza Vaccine (#1) /, 08/03/2023, 08/24/2021, Additional history exists DTaP/Tdap/Td Vaccine (3 - Tdap)/04/2015, 12/19/2007Cholesterol /Zoster/Shingles Vaccine (1 of 2)2029HIV Screening (Preventive Services)Tfjngktze05/02/2009HepA VaccineAged OutNo longer eligible based on patient's age to complete this topicHib VaccineAged OutNo longer eligible based on patient's age to complete this topicIPV (Polio) VaccineAged OutNo longer eligible based on patient's age to complete this topicMCV4 Vaccine Aged OutNo longer eligible based on patient's age to complete this topic Meningococcal B VaccineAged OutNo longer eligible based on patient's age to complete this topicPneumococcal VaccineAged OutNo longer eligible based on patient's age to complete this topic Procedures Procedure NamePriorityDate/TimeAssociated DiagnosisCommentsLIPID PANEL & DIRECT LDL (IF NEEDED)Qtxaffj8906/26/2021 8:40 AM CDT Screening for lipoid disorders HIV BPKNSAMKBekecjk99/02/2009 11:40 AM URGENT CARE TECHNICIAN ANATOMICAL PATH LIQUID XBBIKDzagjpq21/16/2009 7:49 AM CDT from Last 3 Months or Most Recently Relevant to Health Maintenance Results * (ABNORMAL) Lipid Panel and Direct LDL(If Needed) (06/26/2021 8:40 AM CDT) ComponentValueRef RangeTest MethodAnalysis TimePerformed AtPathologist UbpsjzdzuLqiqagnuuxo703(H)0 - 199 mg/dL06/26/2021 12:33 PM [facility] ABZJZUHGGKZjzijxtljfac064(H)<=149 mg/dL06/26/2021 12:33 PM [facility] LABORATORYHDL Oajequyiqih79>=40 mg/dL06/26/2021 12:33 PM [facility] LABORATORYLDL, Qxenmknarx332<130 mg/dL06/26/2021 12:33 PM [facility] Chol, Lbocbomdnw480(H)<=159 mg/dL06/26/2021 12:33 PM CDT [facility]ORYCholesterol/HDL Ratio4.709 12:33 PM [facility] LABORATORYHours Vhjzrst2473/17/2021 12:33 PM CDTPSOUTHER[facility] LABORATORYSpecimen (Source)Anatomical Location / LateralityCollection Method / VolumeCollection TimeReceived TimeBloodVenipuncture / Tkiebza6106/26/2021 8:40 AM CDT06/26/2021 8:40 AM CDT Narrative Authorizing ProviderResult TypeResult StatusJesscindy Kumar MDLAB_1 Final ResultPerforming OrganizationAddressCity/State/ZIP CodePhone Number [facility] [address] [place] [address], [facility] [phone] [facility] [address] [place] [address], [facility] [phone] * HIV ANTIBODY (09/10/2009 11:40 AM URGENT CARE TECHNICIAN)ComponentValueRef RangeTest Method Analysis TimePerformed AtPathologist SignatureHIV 1/HIV 2Non ReacNon ReacHP CONVERSIONSpecimen (Source)Anatomical Location / LateralityCollection Method / VolumeCollection TimeReceived Time09/10/2009 11:40 AM URGENT CARE TECHNICIAN Narrative Authorizing ProviderResult TypeResult StatusDavid Marcin Ortega MDLAB_1Final Result Performing OrganizationAddressCity/State/ZIP CodePhone Number [facility] CONVERSION * Pap Smear (12/23/2008 7:49 AM CDT)ComponentValueRef RangeTest MethodAnalysis TimePerformed AtPathologist SignaturePAP Smear Liquid BasedSEE TEXTNo normal rangeHP CONVERSIONComment: Patient: JAYE ESCOBAR ? CERVICAL CYTOLOGY REPORT Pathology # ??[id number] ?Date Obtained: ? Date Received: CYTOLOGIC IMPRESSION: Negative for intraepithelial lesion or malignancy. Verified 12/26/08 by: ??JLL ?(electronic signature) ? ADDITIONAL DATA LMP: CLINICAL HIST LIQUID BASED PAP CERVICAL SPECIMEN ADEQUACY: ?? Satisfactory. ENDOCERVICAL CELLS: ??Present. Specimen (Source)Anatomical Location / LateralityCollection Method / Volume Collection TimeReceived Time12/23/2008 7:49 AM CDT Narrative Authorizing ProviderResult TypeResult StatusJeania MorrisonLAB_1Final Result Performing OrganizationAddressCity/State/ZIP CodePhone Number [facility] CONVERSION from Last 3 Months or Most Recently Relevant to Health Maintenance Insurance * Guarantor: Jaye Escobar TypeRelation to PatientDate of BirthPhone Billing AddressPersonal/LzhsygFpvh1980 [facility] [employer] [place] [address] [place] [address] [place] [address] Advance Directives * Full Code (Latest Code Status on File) Date ActivatedDate InactivatedComments01/08/2022 5:53 PM01/09/2022 3:28 PM Care Teams Team MemberRelationshipSpecialtyStart DateEnd Date Jesus Rabago MD [facility] [address] [place] [address] PCP - GeneralFamily Practice01/08/22
[2025-10-03 14:43] VITALS: BP 129/79; PULSE 67; RESP 18; TEMP 37.2; O2SAT 98
--- NOTE | 2025-10-03 14:57 | CRLHL7_ITS ---
For Patients: As a result of the Cures Act, medical imaging exams and procedure reports are released immediately into your electronic medical record. You may view this report before your referring provider. If you have questions, please contact your health care provider. INDICATION: Low back pain. TECHNIQUE: Three views of the lumbar spine. COMPARISON: None. FINDINGS: Vertebral body heights and alignment are normal. There is moderate loss of disc height at L5-S1 and at T11-12 with small anterior osteophytes. Mild facet joint degenerative changes in the lower lumbar spine. Surgical clips are noted in the anterior abdominal wall and suture material projects over the left mid and upper abdomen. IMPRESSION: Degenerative changes in the lower lumbar spine. No acute fracture. Dictated by Regina Leija MD @ 10/03/2025 3:19:53 PM (Electronically Signed)
--- NOTE | 2025-10-03 14:58 | ED_ITS ---
HPI - Back Pain/Injury General Chief Complaint: Back Injury/Pain Stated Complaint: low back pain Time Seen by Provider: 10/03/25 14:40 History of Present Illness HPI Narrative: Patient is a 45-year-old woman who presents with low back pain. Pain starts in her buttocks and radiates down her left leg. She has now developed inability to dorsiflex her left foot. She has had no other neurologic symptoms. She states the pain is moderate. She has taken Tylenol and Celebrex with limited effect. She has had no recent injuries. She describes no bowel or bladder symptoms no fevers no chills. She has had no similar symptoms previously Related Data Home Medications ?Medication ?Instructions ?Recorded ?Confirmed lisinopril 40 mg tablet 40 mg PO DAILY 05/10/2509/10 tirzepatide (weight loss) 5 mg/0.5 mg subcut .weekly 0 05/10/25 07/17/25 mL subcutaneous pen injector (Zepbound) Previous Rx's ?Medication ?Instructions ?Recorded bupropion HCl 300 mg 24 hr tablet, 300 mg PO QAM #90 t abs 10/09/24 extended release celecoxib 200 mg capsule 200 mg PO QDAY #90 caps 09/11 11/02 citalopram 40 mg tablet 40 mg PO DAILY #90 tabs 09/11 11/02 estradiol 0.5 mg tablet 0.5 mg PO QDAY 90 days #90 t abs 10/09/24 labetalol 300 mg tablet 300 mg PO BID #180 tabs 09/11 11/02 levothyroxine 125 mcg tablet 125 mcg PO QDAY #90 tabs 10/09/24 propranolol 10 mg tablet 10 mg PO BID #180 tabs 10/09 estradiol 1 mg tablet 1 mg PO QDAY #90 tabs bicalutamide 50 mg tablet (Casodex) 50 mg PO 2XW #24 t abs 09/25/25 Allergies Allergy/AdvReac Type Severity Reaction Status Date / Time bee venom protein (honey bee) Allergy Mild Hives Verified 10/03/25 14:49 Sulfa (Sulfonamide Allergy Unknown Verified 10/03/25 14:49 Antibiotics) oxycodone Allergy Verified 10/03/25 14:49 Review of Systems Status of ROS: Reports: 10 or more systems reviewed and unremarkable except as noted in History and below [facility] Medical History Hair loss ?L65.9 - Nonscarring hair loss, unspecified (ICD-10) Obesity ?E66.9 - Obesity, unspecified (ICD-10) Surgical History History of hand surgery ?Z98.890 - Other specified postprocedural states (ICD-10) Status post gastric bypass for obesity ?Z98.84 - Bariatric surgery status (ICD-10) Status post hysterectomy ?Z90.710 - Acquired absence of both cervix and uterus (ICD-10) Status post ?Z98.891 - History of uterine scar from previous surgery (ICD-10) Family History Aunt Heart disease Mother High blood pressure Breast cancer Colon cancer Father High blood pressure Grandfather Thyroid disease Grandmother Breast cancer Social History Narrative: Occupation Administration Education BS Sexually active 3 children Never smoked What is your current living situation?: I presently have a place to live Problems where you live: no known problems In the past 12 months, utilities in danger of being shut off: no In past 12 months, lack of transportation kept you from medical appts, meetings, work, or getting things needed for daily living: no In the past 12 mos, have been you worried that your food would run out before you had money to buy more?: never true In the past 12 mos, the food you bought just didn't last and you didn't have money to buy more?: never true Smoking Status: Never smoker Do you use any of these nicotine containing products: None Second hand tobacco smoke exposure: No How often do you have a drink containing alcohol: 2-3 times a week AUDIT-C Alcohol total score: 3 Non-prescribed substance use: denies use How often does anyone, including family, friends and others, physically hurt you : never How often does anyone, including family, friends and others, insult or talk down to you: never How often does anyone, including family, friends and others, threaten you with harm: never How often does anyone, including family, friends and others, scream or curse at you: never Exam Narrative: Exam Narrative: EXAM GENERAL: Patient appears comfortable and well. EYES: No scleral icterus. LYMPH: No supraclavicular or cervical lymphadenopathy. SKIN: Visible skin seen during exam normal or with benign process only. EXT: No dependent lower extremity pedal edema. HEART: Regular rate and rhythm with no murmurs, rubs, or gallops. LUNGS: Clear to auscultation bilaterally with no crackles or wheezes. ABD: Soft, non tender, non distended. PSYCH: Good eye contact, speech is not pressured. Neurologic cranial nerves 2-12 grossly intact no focal defects. Const: Vital Signs, click to edit/add: Vital Signs - 24 hr 10/03/25 14:43 Temperature 98.9 F Pulse Rate [Right Pulse Oximeter] 67 Respiratory Rate 18 Blood Pressure [Ri ght Upper Arm] 129/79 Pulse Oximetry 98 Oxygen Delivery Me thod Room Air Course Course ED Course: Patient seen and examined. X-ray of her lumbar spine pending. Vital Signs Vital signs: Initial Vital Signs Temperature 98.9 F 10/03/25 14:43 Temperature Source Temporal Artery Scan 10/03/25 14:43 Pulse Rate 67 10/03/25 14:43 Pulse Rhythm Regular 10/03/25 14:43 Pulse Strength 3+ Normal 10/03/25 14:43 Respiratory Rate 18 10/03/25 14:43 Blood Pressure 129/79 10/03/25 14:43 Blood Pressure Mean 95 10/03/25 14:43 Blood Pressure Position Sitting 10/03/25 14:43 Pulse Oximetry 98 10/03/25 14:43 Oxygen Delivery Method Room Air 10/03/25 14:43 Vital Signs Temperature 98.9 F 10/03/25 14:43 Pulse Rate 67 10/03/25 14:43 Respiratory Rate 18 10/03/25 14:43 Blood Pressure 129/79 10/03/25 14:43 Pulse Oximetry 98 10/03/25 14:43 Oxygen Delivery Method Room Air 10/03/25 14:43 Temperature 98.9 F 10/03/25 14:43 Pulse Rate 67 10/03/25 14:43 Respiratory Rate 18 10/03/25 14:43 Blood Pressure 129/79 10/03/25 14:43 Pulse Oximetry 98 10/03/25 14:43 Oxygen Delivery Method Room Air 10/03/25 14:43 MDM - Back Pain/Injury MDM Narrative Medical decision making narrative: Patient presents with sciatica on the left with mild footdrop. She has no other focal neurologic defects other than discomfort. She has a x-ray series shows some mild arthritic changes inferiorly. This time I feel like her most likely diagnosis his sciatica will treated with a Tylenol prednisone rest and follow-up with her primary physician to discuss MRI verses physical therapy the next few days. Discharge Plan Discharge Clinical Impression: Sciatica Patient Disposition: Home, Self-Care Condition: Stable Instructions: Sciatica (ED) Additional Instructions: Prednisone as directed Tylenol 1000 mg 3 times a day as needed Ice Follow-up with your doctor discussed physical therapy versus MRI this coming week. Prescriptions: No Action labetalol 300 mg tablet 300 mg PO BID Qty: 180 3RF levothyroxine 125 mcg tablet 125 mcg PO QDAY Qty: 90 3RF propranolol 10 mg tablet 10 mg PO BID Qty: 180 3RF citalopram 40 mg tablet 40 mg PO DAILY Qty: 90 3RF bupropion HCl 300 mg tablet extended release 24 hr 300 mg PO QAM Qty: 90 3RF celecoxib 200 mg capsule 200 mg PO QDAY Qty: 90 2RF estradiol 0.5 mg tablet 0.5 mg PO QDAY 90 Days Qty: 90 3RF Rx Instructions: off 5 days; repeat cycle lisinopril 40 mg tablet 40 mg PO DAILY Zepbound 5 mg/0.5 mL pen injector subcut .weekly estradiol 1 mg tablet 1 mg PO QDAY Qty: 90 3RF bicalutamide [Casodex] 50 mg tablet 50 mg PO 2XW Qty: 24 3RF Rx Instructions: Take 1 tablet two days every week Follow Up/Referrals: Alden Rabago MD [Primary Care Provider, Family Practice] Stand Alone Forms: [employer] Info Instructions
== END 2025-10-03 15:38 | disposition home or self-care (01) ==
PROVIDERS: Emergency Provider Internal Medicine; PCP Family Medicine
DX: M54.32 Sciatica, left side (principal); M21.372 Foot drop, left foot
CPT/HCPCS: 72100; 72148; 99283; 99284

== ENCOUNTER 2025-10-08 12:59 | Emergency (ER) | payer BC, SELFPAY ==
--- OUTSIDE RECORDS SUMMARY | 2025-10-08 13:04 | XMS_ITS | Clinical Summary ---
Author Organization [facility] Address [address] [place] [address] Care Team Providers Care Hoof And Shoe Inspector Name Role Phone Jesus Rabago MD Primary Care Provider [phone] Source Comments You are receiving this document [...] for each transition of care or referral. [facility] Allergies Active AllergyReactionsCriticalityNoted DateCommentsOxycodoneHeadacheHigh 01/15/2022 migraine Sulfa Ezrroupjuqz63/28/2004 PN: LW Reaction: family hx Medications MedicationSigDispense [...] 1105Active Active Problems ProblemNoted DateDiagnosed DateS/P gastric bfyrej6101/08/2022 Overview (01/08/2022): Laparoscopic Deonna-en-Y gastric bypass No elective surgery for 30 days starting 01/08/22 Class 2 obesity with body mass index (BMI) of 39.0 to 39.9 in adult11/17/2021 Overview (11/17/2021): Added automatically from request for surgery [id number] Essential (primary) etrdvbdkfblj31/09/2021Current mild episode of major depressive nviuylas25/09/2021Depressive hxniwwuq69/11/2008 Overview (06/01/2017): Depression NOS Benign essential hypertension, with delivery, with current niuotmugxqhf52/13/2007 Overview (06/01/2017): Hypertension Benign Essent Deliv Pp Comp Immunizations ImmunizationAdministration DatesNext DueFlu Vac Preserv Free (3+yrs)07/10/2009 H1n1 Miv Sanofi 3+ Yr (Injected)08/11/2009TDAP (ADACEL)12/19/2007 Family History Medical HistoryRelationNameCommentsObesityBirth FatherObesityBirth MotherObesity Maternal GrandfatherObesityMaternal GrandmotherAlcohol AbuseNegative Family HistoryDrug AbuseNegative Family HistoryRelationNameStatusCommentsBirth Father MotherMaternal GrandfatherMaternal Grandmother Social History Tobacco UseTypesPacks/DayYears UsedDateSmoking Tobacco: NeverSmokeless Tobacco: NeverAlcohol UseStandard Drinks/WeekCommentsYes0 (1 standard drink = 0.6 oz pure alcohol)very rarelyPHQ-2AnswerDate RecordedPHQ-2 Atkpy8803 CommentsUnknownSex and Gender InformationValueDate RecordedSex Assigned at Ebbgmz1906/18/2021 9:13 AM CDTLegal XcoUsfqxj41/10/2012 5:07 AM CDTGender Identity Igsnbd2206/18/2021 9:13 AM CDTSexual OrientationNot on fileOccupationIndustryJob Start DateJob End Datedirect salesNot on fileNot on fileNot on file Last Filed Vital Signs Vital SignReadingTime TakenCommentsBlood Wxlcfvtg536/8304 8:15 AM CDT self-ovxajdjrHdani2248/05/2023 3:21 PM LPKDjeycjgyxjf96.7 ??C (98 ??F)01/09/2022 10:12 AM CDTRespiratory Axjz4469 10:12 AM CDTOxygen Dolssjbssr14% 01/09/2022 10:12 AM CDTInhaled Oxygen Concentration--Wbgiwe40.5 kg (140 lb) 01/23/2025 10:58 AM GXTCgxglo553.1 cm (5' 5)01/23/2025 10:58 AM CDTBody Mass Index23.304 10:58 AM CDT Plan of Treatment DateTypeDepartmentCare Team (Latest Contact Info)Ivlxaavrzvr81/02/2026 3:30 PM CDTTelemedicine [facility] [address], [address] [place] [address] Aishwarya Kumar MD [address] [place] [address] 01/23/2026 3:30 PM [facility] [address], [address] [place] [address] Aishwarya Kumar MD [address] [place] [address] 03/26/2026 4:30 PM [facility] [address] [place] [address], [address] [place] [address] Aishwarya Kumar MD [address] [place], [place] [id number] Health MaintenanceDue DateLast DoneCommentsColon Cancer Screening Plan Due 1979Hep C Screening (Preventive Services)1980 4172Uetxhjffe1979 Adult Preventive Visit1997HepB Vaccine (1)1998Cervical Cancer Screening Due, 12/19/2007COVID-19 Vaccine ( season), 12/18/2020, 11/20/2020Influenza Vaccine (#1) /, 08/03/2023, 08/24/2021, Additional history exists DTaP/Tdap/Td Vaccine (3 - Tdap)/04/2015, 12/19/2007Cholesterol /Zoster/Shingles Vaccine (1 of 2)2029HIV Screening (Preventive Services)Hegbkerut08/02/2009HepA VaccineAged OutNo longer eligible based on patient's [...] NamePriorityDate/TimeAssociated DiagnosisCommentsLIPID PANEL & DIRECT LDL (IF NEEDED)Ghhhwgc1806/26/2021 8:40 AM CDT Screening for lipoid disorders HIV JWPVGJCRQbpfoge12/02/2009 11:40 AM COLD TYPE ARTIST ANATOMICAL PATH LIQUID VCHNBIcjnmyz93/16/2009 7:49 AM CDT from Last 3 Months or Most Recently Relevant to Health Maintenance Results * (ABNORMAL) Lipid Panel and Direct LDL(If Needed) (06/26/2021 8:40 AM CDT) ComponentValueRef RangeTest MethodAnalysis TimePerformed AtPathologist QbdvcbjieSlugtypdtih887(H)0 - 199 mg/dL06/26/2021 12:33 PM [facility] QNUTPAURYHOwcovipbtakc120(H)<=149 mg/dL06/26/2021 12:33 PM [facility] LABORATORYHDL Grrgsruhzbu10>=40 mg/dL06/26/2021 12:33 PM [facility] LABORATORYLDL, Xuaffbhwog270<130 mg/dL06/26/2021 12:33 PM [facility] HDL Chol, Vhhmjnfwxx899(H)<=159 mg/dL06/26/2021 12:33 PM CDT [facility]ORATORYCholesterol/HDL Ratio4.709 12:33 PM [facility] LABORATORYHours Beblwlq2643/17/2021 12:33 PM [facility]PP[facility] LABORATORYSpecimen (Source)Anatomical Location / LateralityCollection Method / VolumeCollection TimeReceived TimeBloodVenipuncture / Niocyeq2106/26/2021 8:40 AM CDT06/26/2021 8:40 AM CDT Narrative Authorizing ProviderResult TypeResult StatusJesscindy Kumar MDLAB_1 Final ResultPerforming OrganizationAddressCity/State/ZIP CodePhone Number [facility] [address] [address] [address], [facility] [phone] [facility] [address] [place] [address], [facility] [phone] * HIV ANTIBODY (09/10/2009 11:40 AM COLD TYPE ARTIST)ComponentValueRef RangeTest Method Analysis TimePerformed AtPathologist SignatureHIV 1/HIV 2Non ReacNon ReacHP CONVERSIONSpecimen (Source)Anatomical Location / LateralityCollection Method / VolumeCollection TimeReceived Time09/10/2009 11:40 AM COLD TYPE ARTIST Narrative Authorizing ProviderResult TypeResult StatusDavid Marcin Ortega MDLAB_1Final Result Performing OrganizationAddressCity/State/ZIP CodePhone Number HP CONVERSION * Pap Smear (12/23/2008 7:49 AM CDT)ComponentValueRef RangeTest MethodAnalysis TimePerformed AtPathologist SignaturePAP Smear Liquid BasedSEE TEXTNo normal rangeHP CONVERSIONComment: Patient: JAYE ESCOBAR ? CERVICAL CYTOLOGY REPORT Pathology # ??[id number] ?Date Obtained: ? Date Received: CYTOLOGIC IMPRESSION: [...] Escobar TypeRelation to PatientDate of BirthPhone Billing AddressPersonal/MhceieEfdj1980 [facility] DIN For[employer]™ NetworkNorth [facility] [place] [address] [place] [address] [place] [address] Advance Directives * Full Code (Latest Code Status on File) Date ActivatedDate InactivatedComments01/08/2022 5:53 PM01/09/2022 3:28 PM Care Teams Team MemberRelationshipSpecialtyStart DateEnd Date Jesus Rabago MD [facility] [address] [place] [address] PCP - GeneralFamily Practice01/08/22
[2025-10-08 13:15] VITALS: BP 148/92; PULSE 66; RESP 16; TEMP 36.9; O2SAT 97; BMI 25.4
--- NOTE | 2025-10-08 13:40 | CRLHL7_ITS ---
For Patients: As a result of the Century Cures Act, medical imaging exams and procedure reports are released immediately into your electronic medical record. You may view this report before your referring provider. If you have questions, please contact your health care provider. INDICATION: Left foot drop. Urinary incontinence. COMPARISON: None. TECHNIQUE: Sagittal T1, T2, and STIR sequences. Axial T1 and T2 weighted sequences. FINDINGS: Degenerative retrolisthesis of L4 on L5 measures approximately 3 mm. Otherwise, normal alignment. No fractures. No vertebral body loss of height. No ligamentous injury. No suspicious osseous lesions. Normal conus terminates at L2. T12-L1 L1-2 L2-3: No spinal canal or neural foraminal narrowing. L3-4: Annular bulge. No spinal canal or neural foraminal narrowing. L4-5: Grade 1 retrolisthesis. Disc degeneration and posterior disc bulge. Flattening of ventral thecal sac. Mild narrowing of the spinal canal. No neural foraminal narrowing. There is a superimposed left subarticular disc extrusion measuring 6 mm in diameter with 6 mm of caudal migration. No narrowing of spinal canal. Left subarticular recess narrowing with impingement of the traversing left L5 nerve root. No neural foraminal narrowing. L5-S1: Disc degeneration loss disc height. No narrowing of the spinal canal. No impingement of the traversing S1 nerve roots. No neural foraminal narrowing. Normal visualized SI joints. Normal paraspinal soft tissues. IMPRESSION: 1. Degenerative retrolisthesis of L4 on L5. Otherwise normal alignment. No fractures 2. At L4-5, grade 1 retrolisthesis. Posterior disc bulge. Mild narrowing of the spinal canal. Left subarticular disc extrusion with caudal migration. Impingement of the traversing left L5 nerve root. 3. No spinal canal or neural foraminal narrowing at the remaining levels Dictated by Ike Red MD @ 10/08/2025 2:44:12 PM (Electronically Signed)
--- NOTE | 2025-10-08 13:41 | ED.NEUROSD ---
HPI - Neuro Symptoms/Deficit General Chief Complaint: Neuro Symptoms/Altered Deficit Stated Complaint: bladder leakage Time Seen by Provider: 10/08/25 13:29 History of Present Illness HPI Narrative: This 45-year-old female was seen 5 days ago in the emergency department and started on a steroid because of a left foot drop. She also has had some urine incontinence. She attempted to follow-up with her doctor for MRI and was unable to arrange that so was advised to come here to the emergency department yet an MRI. She is not reporting any pain but states that she cannot dorsiflex her left foot beyond 90?. This of course is in addition to some persistent urinary incontinence. Related Data Home Medications ?Medication ?Instructions ?Recorded ?Confirmed lisinopril 40 mg tablet 40 mg PO DAILY 05/10/25 10/03/25 tirzepatide (weight loss) 5 mg/0.5 mg subcut .weekly 05/10/25 07/17/25 mL subcutaneous pen injector (Zepbound) Previous Rx's ?Medication ?Instructions ?Recorded bupropion HCl 300 mg 24 hr tablet, 300 mg PO QAM #90 tabs 10/09/24 extended release celecoxib 200 mg capsule 200 mg PO QDAY #90 caps 10/09/24 citalopram 40 mg tablet 40 mg PO DAILY #90 tabs 10/09/24 estradiol 0.5 mg tablet 0.5 mg PO QDAY 90 days #90 tabs 10/09/24 labetalol 300 mg tablet 300 mg PO BID #180 tabs 10/09/24 levothyroxine 125 mcg tablet 125 mcg PO QDAY #90 tabs 10/09/24 propranolol 10 mg tablet 10 mg PO BID #180 tabs 10/09/24 estradiol 1 mg tablet 1 mg PO QDAY #90 tabs 05/10/25 bicalutamide 50 mg tablet (Casodex) 50 mg PO 2XW #24 tabs 09/25/25 methylprednisolone 4 mg tablets in See Rx Instructions PO .COMPLEX 10/08/25 a dose pack (Medrol (Bruce)) #21 ea Allergies Allergy/AdvReac Type Severity Reaction Status Date / Time bee venom protein (honey bee) Allergy Mild Hives Verified 10/08/25 13:21 Sulfa (Sulfonamide Allergy Unknown Verified 10/08/25 13:21 Antibiotics) oxycodone Allergy Verified 10/08/25 13:21 Review of Systems Status of ROS: Reports: 10 or more systems reviewed and unremarkable except as noted in History and below Narrative: Constitutional: No fevers, no weight gain or loss. Eyes: No discharge. No vision changes. HENT: No congestion, no sore throat, no ear pain. Cardiovascular: No chest pain, no palpitations. Respiratory: No shortness of breath, no wheezes, no cough. Gastrointestinal: No abdominal pain, no vomiting, no diarrhea. Genitourinary: Nohematuria. Urinary incontinence. Musculoskeletal: Normal range of motion. Skin: No rashes, no pruritis. Neurological: No dizziness, sensory change, speech change. Left footdrop. Endo/Heme/Allergies: No bruising or bleeding. No polydipsia. Pysch: no suicidality, no anxiety, no insomnia. All other systems reviewed and are negative. [facility] Medical History (Updated 10/08/25 @ 15:17 by Alden Albrecht MD) Hair loss ?L65.9 - Nonscarring hair loss, unspecified (ICD-10) Obesity ?E66.9 - Obesity, unspecified (ICD-10) Surgical History History of hand surgery ?Z98.890 - Other specified postprocedural states (ICD-10) Status post gastric bypass for obesity ?Z98.84 - Bariatric surgery status (ICD-10) Status post hysterectomy ?Z90.710 - Acquired absence of both cervix and uterus (ICD-10) Status post ?Z98.891 - History of uterine scar from previous surgery (ICD-10) Family History Aunt Heart disease Mother High blood pressure Breast cancer Colon cancer Father High blood pressure Grandfather Thyroid disease Grandmother Breast cancer Social History Narrative: Occupation Administration Education BS Sexually active 3 children Never smoked What is your current living situation?: I presently have a place to live Problems where you live: no known problems In the past 12 months, utilities in danger of being shut off: no In past 12 months, lack of transportation kept you from medical appts, meetings, work, or getting things needed for daily living: no In the past 12 mos, have been you worried that your food would run out before you had money to buy more?: never true In the past 12 mos, the food you bought just didn't last and you didn't have money to buy more?: never true Smoking Status: Never smoker Do you use any of these nicotine containing products: None Second hand tobacco smoke exposure: No How often do you have a drink containing alcohol: 2-3 times a week How many standard drinks containing alcohol do you have on a typical day: 1 or 2 How often do you have six or more drinks on one occasion: Never AUDIT-C Alcohol total score: 3 Non-prescribed substance use: denies use How often does anyone, including family, friends and others, physically hurt you: never How often does anyone, including family, friends and others, insult or talk down to you: never How often does anyone, including family, friends and others, threaten you with harm: never How often does anyone, including family, friends and others, scream or curse at you: never Exam Narrative: Exam Narrative: Constitutional: Well-developed, well-nourished, no acute distress. HEENT: Normocephalic, atraumatic. Neck: Normal range of motion. Nontender. Supple. Heart: Regular. No murmurs. Normal rate. Intact distal pulses. Lungs: Clear to auscultation. No chest discomfort. No wheezes, rhonchi, or rales. Abdomen: Normal bowel sounds. Nontender. No rebound tenderness. Genitalia: Deferred. Back: No midline tenderness. Normal range of motion. Extremities:No injury. Left foot has weakness with dorsiflexion. Skin: Intact. No rash. Warm. No erythema or pallor. Neurologic: No altered sensation. No weakness. Alert and oriented. Psychiatric: No suicidality. No anxiety or depression. No insomnia. Nursing notes and vitals signs are reviewed. Const: Vital Signs, click to edit/add: Vital Signs - 24 hr 10/08/25 13:15 Temperature 98.4 F Pulse Rate [Pulse Oximeter] 66 Respiratory Rate 16 Blood Pressure [Ri ght Upper Arm] 148/92 H Pulse Oximetry 97 Oxygen Delivery Me thod Room Air Course Vital Signs Vital signs: Initial Vital Signs Temperature 98.4 F 10/08/25 13:15 Temperature Source Temporal Artery Scan 10/08/25 13:15 Pulse Rate 66 10/08/25 13:15 Respiratory Rate 16 10/08/25 13:15 Blood Pressure 148/92 H 10/08/25 13:15 Blood Pressure Mean 110 H 10/08/25 13:15 Pulse Oximetry 97 10/08/25 13:15 Oxygen Delivery Method Room Air 10/08/25 13:15 Vital Signs Temperature 98.4 F 10/08/25 13:15 Pulse Rate 66 10/08/25 13:15 Respiratory Rate 16 10/08/25 13:15 Blood Pressure 148/92 H 10/08/25 13:15 Pulse Oximetry 97 10/08/25 13:15 Oxygen Delivery Method Room Air 10/08/25 13:15 Temperature 98.4 F 10/08/25 13:15 Pulse Rate 66 10/08/25 13:15 Respiratory Rate 16 10/08/25 13:15 Blood Pressure 148/92 H 10/08/25 13:15 Pulse Oximetry 97 10/08/25 13:15 Oxygen Delivery Method Room Air 10/08/25 13:15 MDM - Neuro Symptoms/Deficit MDM Narrative Medical decision making narrative: this patient has had severe pain in her low back radiating down her leg but now the pain is gone but she does have residual weakness with dorsiflexion of her ankle and her great toe. An MRI is obtained which shows disc bulging and nerve impingement did at L4-L5 which would correlate with her current symptoms. She does not have any other findings including no sign of how take wine a syndrome. She states that she just finished a course of prednisone. I did provide a prescription for Medrol Dosepak. I recommended that she follow up with our spine clinic for ongoing management. Imaging Data MR - Other: Radiologist's impression: 1. Degenerative retrolisthesis of L4 on L5. Otherwise normal alignment. No fractures 2. At L4-5, grade 1 retrolisthesis. Posterior disc bulge. Mild narrowing of the spinal canal. Left subarticular disc extrusion with caudal migration. Impingement of the traversing left L5 nerve root. 3. No spinal canal or neural foraminal narrowing at the remaining levels Discharge Plan Discharge Clinical Impression: Acute left lumbar radiculopathy Patient Disposition: Home, Self-Care Condition: Stable Additional Instructions: take medication as prescribed. Follow-up with spine clinic for ongoing management. Call [phone] for appointment. Return if worsening. Prescriptions: New methylprednisolone [Medrol (Bruce)] 4 mg tablets,dose pack See Rx Instructions .ROUTE .COMPLEX Qty: 21 0RF Rx Instructions: orally per package directions No Action labetalol 300 mg tablet 300 mg PO BID Qty: 180 3RF levothyroxine 125 mcg tablet 125 mcg PO QDAY Qty: 90 3RF propranolol 10 mg tablet 10 mg PO BID Qty: 180 3RF citalopram 40 mg tablet 40 mg PO DAILY Qty: 90 3RF bupropion HCl 300 mg tablet extended release 24 hr 300 mg PO QAM Qty: 90 3RF celecoxib 200 mg capsule 200 mg PO QDAY Qty: 90 2RF estradiol 0.5 mg tablet 0.5 mg PO QDAY 90 Days Qty: 90 3RF Rx Instructions: off 5 days; repeat cycle lisinopril 40 mg tablet 40 mg PO DAILY Zepbound 5 mg/0.5 mL pen injector subcut .weekly estradiol 1 mg tablet 1 mg PO QDAY Qty: 90 3RF bicalutamide [Casodex] 50 mg tablet 50 mg PO 2XW Qty: 24 3RF Rx Instructions: Take 1 tablet two days every week Follow Up/Referrals: Alden Rabago MD [Primary Care Provider, Family Practice] Stand Alone Forms: [facility] Inst[facility]
== END 2025-10-08 15:23 | disposition home or self-care (01) ==
PROVIDERS: Emergency Provider Emergency Medicine Emergency Medical Services; PCP Family Medicine
DX: R32 Unspecified urinary incontinence (principal); M54.16 Radiculopathy, lumbar region; M43.16 Spondylolisthesis, lumbar region; M51.361 Other intervertebral disc degeneration, lumbar region with lower extremity pain only; M51.26 Other intervertebral disc displacement, lumbar region; M48.061 Spinal stenosis, lumbar region without neurogenic claudication
CPT/HCPCS: 72148; 99284